=== PATIENT | male | born 1995 | race Asian ===

== ENCOUNTER 2017-12-14 22:52 | Emergency (ER) | payer OTHER ==
[2017-12-15] MEDS ORDERED: Acetaminophen 500 MG TAB ONE (00:52)
--- NOTE | 2017-12-15 07:57 | RAD ---
PA CHEST AND RIGHT RIBS 3 VIEWS: Date: 12/14/17 INDICATION: Fall with injury to right chest. FINDINGS: Lungs are clear on the PA chest. Right ribs appear intact on this exam. IMPRESSION: No evidence of right rib fracture identified. POS: [id number]
== END 2017-12-15 00:56 | disposition home or self-care (01) ==
LOC: ERS 22:52
DX: S29.9XXA Unspecified injury of thorax, initial encounter (principal); W19.XXXA Unspecified fall, initial encounter